=== PATIENT | female | born 1980 | race Caucasian/White ===

== ENCOUNTER 2016-11-22 19:34 | Emergency (ER) | payer OTHER ==
[~2016-11-22] VITALS: Ht 172.7 cm; Wt 75.8 kg
[2016-11-22 19:45] VITALS: BP 132/86; PULSE 106; TEMP 36.7; O2SAT 97; Ht 172.7 cm; Wt 75.8 kg
--- NOTE | 2016-11-22 20:37 | DIAGNOSTIC IMAGING REPORT ---
RIGHT FOOT MIN 3 VIEWS ROUTINE CLINICAL HISTORY: Right foot pain. COMPARISON: None FINDINGS: Alignment of the tarsometatarsal joints is anatomic. No fracture is identified within the right foot. There is no evidence for stress fracture. There is partial fusion of the distal interphalangeal joint of the right fifth toe. No erosions are identified. IMPRESSION: No acute fracture or dislocation within the right foot. Electronically signed by: Ricki Ashby M.D. 11/22/2016 8:35 PM Dictated Date/Time: 11/22/2016 8:34 PM
--- NOTE | 2016-11-23 14:50 | EMERGENCY ROOM VISIT NOTE ---
ED Visit Note First contact with patient: 19:52 Chief Complaint: Right foot pain. History of Present Illness: Ms. Fine is a 35-year-old white female who ambulates into the ED accompanied by her mother complaining of lateral right foot pain. Patient reports approximately 2 hours ago she had just finished driving her children to a park area she was getting out of the car and when she slipped down on her right foot she had an acute onset of lateral right foot pain over the fourth and fifth metatarsals. Since that time she has had pain in this area. She reports it some mild throbbing sensation while she was at rest and when she steps on her foot becomes sharp and rates her discomfort 7/10. Her pain is nonradiating. She has not taken any medications for pain prior to arrival at the hospital. She denies any associated symptoms including fevers, chills, sweats, skin eruptions, skin color changes, recent trauma, knee pain, ankle pain, foot weakness/numbness/tingling, back pain, previous significant injuries or surgeries to the foot. Review of Systems: As noted above in history of present illness. 5 body systems were reviewed and found to be negative as noted above. Past Medical History: Hypertension, unspecified urinary problems, ankylosis spondylitis. Current Medications: Patient denies. Allergies to Medications: Patient denies. Social History: Patient is currently employed; she feels safe in her home environment; she admits to tobacco use and denies alcohol use. Physical Examination: Vital Signs: Date Time Temp Pulse Resp B/P (MAP) Pulse Ox O2 Delivery O2 Flow Rate FiO2 11/22/16 19:45 36.7 106 18 132/86 97 Room Air GENERAL: 35-year-old female in mild distress due to pain, nontoxic-appearing, afebrile and hemodynamically stable. NEUROLOGICAL: Awake, alert and oriented to person, place and time. Answering questions appropriately and following commands. SKIN: Warm, dry and pink. No soft tissue eruptions or trauma noted. RIGHT LOWER EXTREMITY: No gross bony deformity. No pain, tenderness and swelling in the knee, lower leg or ankle. Moderate tenderness over the fourth and fifth metatarsals without bony deformity, bony crepitus, swelling or ecchymosis. No tenderness throughout the toes. Throughout the foot the skin was warm and pink and capillary refill is brisk. Full range of motion in plantar flexion and dorsiflexion and the ankle and flexion and extension of all toes. He was able to distinguish light sensations through all dermatomes. ED Course: Patient is assessed as noted above. Patient's medication list was reviewed. Patient was offered pain medications and refused. Right Foot X-Rays: Were read by myself and the radiologist showing no acute fractures or dislocations. No soft tissue swelling or abnormal bony disease. Patient was placed in a postop shoe and on nonweightbearing crutches. Patient was educated about today's findings and instructed on her treatment plan ; she verbalizes understanding and agreement with this plan. Clinical Impression: Right foot pain. Decision-Making: Initially my differential diagnosis I considered fracture, dislocation, tendinitis, plantar fasciitis, infection, DVT and other causes. Disposition: A shunt discharged home in stable condition; prior to departure she was reassessed and subjectively reported she was feeling the same. Plan: Comfort measures including rest, ice, postop shoe and nonweightbearing crutches and [id number] pain medications were discussed with the patient. Patient was encouraged to follow-up with orthopedic physician if no better in 5- 6 days. Patient was encouraged return ED for worsening/uncontrolled pain, uncontrolled swelling, foot weakness/numbness/tingling or any new/concerning symptoms.
== END 2016-11-22 21:05 | disposition home or self-care (01) ==
LOC: C.EDB 19:35 → C.EDD 21:05
DX: M79.671 Pain in right foot (principal); I10 Essential (primary) hypertension; Z72.0 Tobacco use